=== PATIENT | female | born 1960 | race African-American/Black ===

== ENCOUNTER → 2016-07-04 | Outpatient (CLI) | payer BC ==
--- NOTE | 2016-07-04 16:06 | WOMENS IMAGING REPORT ---
EXAM DESCRIPTION: BILAT SCREENING MAMMO W/CAD COMPLETED DATE/TIME: 07/04/2016 1:35 pm REASON FOR STUDY: Z12.31, ROUTINE SCREENING MAMMO Z12.31 ENCNTR SCREEN MAMMOGRAM FOR MALIGNANT NEOP LASM OF DUSTIN COMPARISON: 03/23/2015 TECHNIQUE: Standard craniocaudal and mediolateral oblique views of each breast recorded using digita l acquisition. LIMITATIONS: None. FINDINGS: No masses, calcifications or architectural distortion. No areas of suspicion. Read with the assistance of CAD. .[facility] - R2 Cenova Version 1.3 .[facility] - R2 Cenova Version 1.3 .[facility] Imaging - R2 Cenova Version 2.4 .[facility] - R2 Cenova Version 2.4 .[facility] - R2 Drug Clerk Version 9.2 BREAST DENSITY: a. The breasts are almost entirely fatty. BIRAD: 1 NEGATIVE RECOMMENDATION: ROUTINE SCREENING COMMENT: PATIENT NOTIFIED BY LETTER. The [employer] recommends an annual screening mammogram for women aged 40 years or over. Each patient will receive a reminder prior to the anniversary date of her mammogram. The [employer] (ACR) has developed recommendations for screening MRI of the breast s in certain patient populations, to be used in conjunction with mammography. Breast MRI surveillanc e may be appropriate for women with more than 20% lifetime risk of developing breast cancer as deter mined by genetic testing, significant family history of the disease, or history of mantle radiation f or Hodgkins Disease. ACR Practice Guidelines 2008. TECHNICAL DOCUMENTATION: FINDING NUMBER: (1) ASSESSMENT: (1) JOB ID: [id number] [employer]- All Rights Reserved
== END ==
LOC: WI 13:10
PROVIDERS: ATTEND Internal Medicine
DX: Z12.31 Encounter for screening mammogram for malignant neoplasm of breast (principal)
CPT/HCPCS: 77067; G0202

== ENCOUNTER 2017-03-08 10:38 | Observation (INO) | payer BC ==
--- NOTE | 2017-03-08 11:22 | ER Document Report ---
ED Medical Screen (RME) - General Chief Complaint: Dizziness Stated Complaint: DIZZINESS Time Seen by Provider: 03/08/17 11:09 Mode of Arrival: Ambulatory Information source: Patient TRAVEL OUTSIDE OF THE [place] IN LAST 30 DAYS: No - HPI Patient complains to provider of: Right-sided weakness, dizziness Notes: 03/08/17 11:21 Patient is a 56-year-old female with a history of hypertension who presents to the emergency room today complaining of 3 day history of dizziness with right- sided weakness, states when she tries to walk she feels as though she is leaning to the right side and that her right side is heavy, she reports a posterior headache, on exam she also reports decreased sensation in the right upper and lower extremities - Related Data Allergies/Adverse Reactions: No Known Allergies Allergy (Verified 03/08/17 11:02) Past Medical History - Social History Chew tobacco use (# tins/day): No Frequency of alcohol use: None Drug Abuse: None - Past Medical History Cardiac Medical History: Reports: Hx Hypertension Denies: Hx Coronary Artery Disease, Hx Heart Attack Pulmonary Medical History: Denies: Hx Asthma, Hx Bronchitis, Hx COPD, Hx Pneumonia Neurological Medical History: Denies: Hx Cerebrovascular Accident, Hx Seizures Renal/ Medical History: Denies: Hx Peritoneal Dialysis GI Medical History: Reports: Hx Colonoscopy Musculoskeltal Medical History: Denies Hx Arthritis Past Surgical History: Reports: Hx Cholecystectomy, Hx Hysterectomy, Hx Tubal Ligation - Immunizations Immunizations up to date: Yes Hx Diphtheria, Pertussis, Tetanus Vaccination: Yes - 2011 Physical Exam - Vital signs Vitals: Temp Pulse Resp BP Pulse Ox 97.8 F 83 18 128/78 H 93 03/08/17 10:59 03/08/17 10:59 03/08/17 10:59 03/08/17 10:59 03/08/17 10:59 Course - Vital Signs Vital signs: Temp Pulse Resp BP Pulse Ox 97.8 F 83 18 128/78 H 93 03/08/17 10:59 03/08/17 10:59 03/08/17 10:59 03/08/17 10:59 03/08/17 10:59
[2017-03-08] MEDS ORDERED: MECLIZINE HCL 25 MG TABLET PO ONE (11:32)
[2017-03-08 12:28] LABS: ABSOLUTE BASOPHILS # (AUTO) 0.1 10^3/uL (0.0-0.2); ABSOLUTE EOSINOPHILS # (AUTO) 0.1 10^3/uL (0.0-0.6); ABSOLUTE LYMPHOCYTES (AUTO) 1.6 10^3/uL (0.5-4.7); ABSOLUTE MONOCYTES (AUTO) 0.4 10^3/uL (0.1-1.4); ABSOLUTE NEUT (AUTO) 1.8 10^3/uL (1.7-8.2); BASOPHILS % (AUTO) 1.8 % (0-2); HEMATOCRIT 40.3 % (36.0-47.0); HEMOGLOBIN 13.9 g/dL (12.0-15.5); HGB HCT DIFFERENCE 1.4; LYMPHOCYTES % (AUTO) 40.8 % (13-45); MEAN CORPUSCULAR HEMOGLOBIN 30.7 pg (27.0-33.4); MEAN CORPUSCULAR HGB CONC 34.4 g/dL (32.0-36.0); MEAN CORPUSCULAR VOLUME 89 fl (80-97); MONOCYTES % (AUTO) 9.7 % (3-13); PROTHROMBIN TIME 15.2 SEC (11.4-15.4); RED BLOOD COUNT 4.52 10^6/uL (3.72-5.28); RED CELL DISTRIBUTION WIDTH 13.8 % (11.5-14.0); SEGMENTED NEUTROPHILS % (AUTO) 45.7 % (42-78)
[2017-03-08 12:29] LABS: PARTIAL THROMBOPLASTIN TIME 28.8 SEC (23.5-35.8)
--- NOTE | 2017-03-08 12:34 | RADIOLOGY REPORT (SQ) ---
EXAM DESCRIPTION: CT HEAD WITHOUT COMPLETED DATE/TIME: 03/08/2017 12:18 pm REASON FOR STUDY: right sided weakness COMPARISON: None. TECHNIQUE: Axial images acquired through the brain without intravenous contrast. Images reviewed wi th bone, brain and subdural windows. Images stored on PACS. All CT scanners at this facility use dose modulation, iterative reconstruction, and/or weight based d osing when appropriate to reduce radiation dose to as low as reasonably achievable (ALARA). [facility]: Dose Right [facility]: CareDose [facility]: Dose Right [facility]: Teradose 4D [facility]: Smart Technologies RADIATION DOSE: Up-to-date CT equipment and radiation dose reduction techniques were employed. CTDIv ol: 64.6 mGy. DLP: 1163 mGy-cm. mGy. LIMITATIONS: None. FINDINGS: VENTRICLES: Normal size and contour. CEREBRUM: Prior multiple areas of decreased white matter attenuation in the bifrontal and right parie ghassan regions. Although findings could represent small vessel ischemic change, demyelinating disease c ould cause this appearance. Multiple brain metastatic lesions at the cortez-white junction with edema could cause this appearance. Consider MRI brain without with contrast for followup. No CT evidence of acute large territory ischemic change, acute intracranial hemorrhage, mass effect, or midline shif t. CEREBELLUM: No masses. No hemorrhage. No alteration of density. No evidence for acute infarction. EXTRAAXIAL SPACES: No fluid collections. No masses. ORBITS AND GLOBE: No intra- or extraconal masses. Normal contour of globe without masses. CALVARIUM: No fracture. PARANASAL SINUSES: No fluid or mucosal thickening. SOFT TISSUES: No mass or hematoma. OTHER: No other significant finding. IMPRESSION: Bifrontal and biparietal subcortical white matter low attenuation. Although this could be due to small vessel disease, demyelinating disease or edema related to tiny brain parenchymal meta static lesions is possible. TRAUMA MANAGER vasculitis is possible. Consider follow-up MRI brain without and wi th contrast at some point. No CT evidence of acute intracranial hemorrhage, mass effect, midline shift, or acute large territory ischemic change EVIDENCE OF ACUTE STROKE: NO. COMMENT: Quality ID # [id number]: Final reports with documentation of one or more dose reduction techniques (e.g., Automated exposure control, adjustment of the mA and/or kV according to patient size, use of iterative reconstruction technique) TECHNICAL DOCUMENTATION: JOB ID: [id number]- All Rights Reserved
--- NOTE | 2017-03-08 12:36 | RADIOLOGY REPORT (SQ) ---
EXAM DESCRIPTION: CHEST SINGLE VIEW COMPLETED DATE/TIME: 03/08/2017 12:26 pm REASON FOR STUDY: right sided weakness COMPARISON: AP chest 06/20/2014 CT chest 02/23/2014 AP chest 02/23/2014 EXAM PARAMETERS: NUMBER OF VIEWS: One view. TECHNIQUE: Single frontal radiographic view of the chest acquired. RADIATION DOSE: NA LIMITATIONS: None. FINDINGS: LUNGS AND PLEURA: No opacities, masses or pneumothorax. No pleural effusion. MEDIASTINUM AND HILAR STRUCTURES: Hilar and mediastinal adenopathy seen on CT chest 02/23/2014 has res olved. HEART AND VASCULAR STRUCTURES: Heart normal in size. Normal vasculature. BONES: No acute findings. HARDWARE: Clips right upper quadrant post cholecystectomy OTHER: No other significant finding. IMPRESSION: NO ACUTE RADIOGRAPHIC FINDING IN THE CHEST. TECHNICAL DOCUMENTATION: JOB ID: [id number]
--- NOTE | 2017-03-08 13:03 | EKG REPORT ---
SEVERITY:- ABNORMAL ECG - SINUS RHYTHM LEFT VENTRICULAR HYPERTROPHY : Confirmed by: Mert Oconnell 08-Mar-2017 13:02:45
[2017-03-08 14:11] LABS: ALANINE AMINOTRANSFERASE 47 U/L (9-52); ALBUMIN 4.1 g/dL (3.5-5.0); ALKALINE PHOSPHATASE 111 U/L (38-126); ANION GAP 8 (5-19); ASPARTATE AMINO TRANSFERASE 30 U/L (14-36); BILIRUBIN,DIRECT 0.3 mg/dL (0.0-0.4); BILIRUBIN,TOTAL 1.1 mg/dL (0.2-1.3); BLOOD UREA NITROGEN 24 mg/dL (7-20); CALCIUM 10.1 mg/dL (8.4-10.2); CARBON DIOXIDE 27 mmol/L (22-30); CHLORIDE 105 mmol/L (98-107); CREATINE KINASE 181 U/L (30-135); CREATININE RESULT 0.87 mg/dL (0.52-1.25); GLUCOSE 91 mg/dL (75-110); SODIUM 140.3 mmol/L (137-145); TOTAL PROTEIN 7.3 g/dL (6.3-8.2)
[2017-03-08 14:21] LABS: CREATINE KINASE MB 1.68 ng/mL (<4.55)
[2017-03-08 14:23] LABS: TROPONIN I < 0.012 ng/mL
--- NOTE | 2017-03-08 14:26 | ER Document Report ---
ED General - General Chief Complaint: Dizziness Stated Complaint: DIZZINESS Time Seen by Provider: 03/08/17 11:09 Mode of Arrival: Ambulatory Information source: Patient Notes: 56-year-old female presents with complaints of shortness of breath with ambulation heaviness in her back and bilateral arms of 2 day duration. Patient also notes that she has been dizzy and lightheaded. Patient denies any fevers or chills denies any chest pain Patient states he feels like there is 100 pounds sitting on her shoulders and back TRAVEL OUTSIDE OF THE [place] IN LAST 30 DAYS: No - HPI Onset: Last week Onset/Duration: Waxing and waning Quality of pain: Achy Severity: Mild Pain Level: 1 Associated symptoms: Body/muscle aches, Shortness of breath, Other Exacerbated by: Movement, Walking Relieved by: Denies Similar symptoms previously: No Recently seen / treated by doctor: No - Related Data Allergies/Adverse Reactions: No Known Allergies Allergy (Verified 03/08/17 11:02) Past Medical History - General Information source: Patient - Social History Smoking Status: Never Smoker Cigarette use (# per day): No Chew tobacco use (# tins/day): No Smoking Education Provided: No Frequency of alcohol use: None Drug Abuse: None Family History: Arthritis, CVA, Hypertension Patient has suicidal ideation: No Patient has homicidal ideation: No - Past Medical History Cardiac Medical History: Reports: Hx Hypertension Denies: Hx Coronary Artery Disease, Hx Heart Attack Pulmonary Medical History: Denies: Hx Asthma, Hx Bronchitis, Hx COPD, Hx Pneumonia Neurological Medical History: Denies: Hx Cerebrovascular Accident, Hx Seizures Renal/ Medical History: Denies: Hx Peritoneal Dialysis GI Medical History: Reports: Hx Colonoscopy Musculoskeltal Medical History: Denies Hx Arthritis Past Surgical History: Reports: Hx Cholecystectomy, Hx Hysterectomy, Hx Tubal Ligation - Immunizations Immunizations up to date: Yes Hx Diphtheria, Pertussis, Tetanus Vaccination: Yes - 2011 Review of Systems - Review of Systems Notes: REVIEW OF SYSTEMS: CONSTITUTIONAL : Denies fever, chills, or sweats. Denies recent illness. EENT: Denies eye, ear, throat, or mouth pain or symptoms. Denies nasal or sinus congestion or discharge. Denies throat, tongue, or mouth swelling or difficulty swallowing. CARDIOVASCULAR: Admits to heaviness of her back and shoulders RESPIRATORY: Admits shortness of breath GASTROINTESTINAL: Denies abdominal pain or distention. Denies nausea, vomiting , or diarrhea. Denies blood in vomitus, stools, or per rectum. Denies black, tarry stools. Denies constipation. GENITOURINARY: Denies difficulty urinating, painful urination, burning, frequency, blood in urine, or discharge. FEMALE GENITOURINARY: Denies vaginal bleeding, heavy or abnormal periods, irregular periods. Denies vaginal discharge or odor. MUSCULOSKELETAL: Denies back or neck pain or stiffness. Denies joint pain or swelling. SKIN: Denies rash, lesions or sores. HEMATOLOGIC : Denies easy bruising or bleeding. LYMPHATIC: Denies swollen, enlarged glands. NEUROLOGICAL: Admits to dizziness PSYCHIATRIC: Denies anxiety or stress. Denies depression, suicidal ideation, or homicidal ideation. ALL OTHER SYSTEMS REVIEWED AND NEGATIVE. PHYSICAL EXAMINATION: GENERAL: Well-appearing, well-nourished and in no acute distress. HEAD: Atraumatic, normocephalic. EYES: Pupils equal round and reactive to light, extraocular movements intact, conjunctiva are normal. ENT: Nares patent, oropharynx clear without exudates. Moist mucous membranes. NECK: Normal range of motion, supple without lymphadenopathy LUNGS: Breath sounds clear to auscultation bilaterally and equal. No wheezes rales or rhonchi. HEART: Regular rate and rhythm without murmurs ABDOMEN: Soft, nontender, nondistended abdomen. No guarding, no rebound. No masses appreciated. Female : deferred Musculoskeletal: Normal range of motion, no pitting or edema. No cyanosis. NEUROLOGICAL: Cranial nerves grossly intact. Normal speech, normal gait. Normal sensory, motor exams PSYCH: Normal mood, normal affect. SKIN: Warm, Dry, normal turgor, no rashes or lesions noted. Dictation was performed using [employer] voice recognition software Physical Exam - Vital signs Vitals: Temp Pulse Resp BP Pulse Ox 97.8 F 83 18 128/78 H 93 03/08/17 10:59 03/08/17 10:59 03/08/17 10:59 03/08/17 10:59 03/08/17 10:59 Course - Re-evaluation Re-evalutation: 03/08/17 15:12 Patient appears to have 2 positive separate complaints, CT of the head was consistent with white matter disease however other differentials have been discussed as well with admitting physician, patient will be admitted for this heaviness and shortness of breath which may be anginal equivalents - Vital Signs Vital signs: Temp Pulse Resp BP Pulse Ox 97.8 F 80 15 132/76 H 97 03/08/17 10:59 03/08/17 12:15 03/08/17 14:00 03/08/17 12:15 03/08/17 14:00 - Laboratory Result Diagrams: 03/08/17 12:12 03/08/17 13:44 Laboratory results interpreted by me: 03/08/17 13:44 BUN 24 H Creatine Kinase 181 H - Diagnostic Test Radiology reviewed: Image reviewed, Reports reviewed - EKG Interpretation by Me EKG shows normal: Sinus rhythm, [place], Intervals, QRS Complexes Discharge - Discharge Clinical Impression: Dizziness, Vertigo, Arm heaviness Condition: Stable Disposition: ADMITTED OBSERVATION Admitting Provider: Hospitalist Unit Admitted: Telemetry
[2017-03-08] MEDS ORDERED: ONDANSETRON 4 MG TAB.RAPDIS PO PRN (15:24)
[2017-03-08] MEDS ORDERED: TEMAZEPAM 15 MG CAPSULE PO PRN (15:24)
[2017-03-08] MEDS ORDERED: ONDANSETRON HCL INJ/PF 4 MG/2 ML SDV IV PRN (15:24)
[2017-03-08] MEDS ORDERED: 1/2 NORMAL SALINE 1,000 ML IV PRN (15:40)
[2017-03-08] MEDS ORDERED: ASPIRIN 81 MG TABLET, CHEWABLE PO ONE (15:41)
[2017-03-08] MEDS ORDERED: HYDRALAZINE HCL INJ/PF 20 MG/1 ML SDV IV PRN (15:42)
[2017-03-08] MEDS ORDERED: TRAMADOL HCL 50 MG TABLET PO PRN (15:43)
[2017-03-08] MEDS ORDERED: ACETAMINOPHEN 325 MG TABLET PO PRN (15:43)
[2017-03-08] MEDS ORDERED: MECLIZINE HCL 25 MG TABLET PO PRN (15:44)
[2017-03-08] MEDS ORDERED: DEXTROSE 50%-WATER 25 GM/50 ML DISP.SYRIN IV PRN ×2 (16:14)
[2017-03-08] MEDS ORDERED: DEXTROSE 40% GEL 15 GM TUBE PO PRN ×2 (16:14)
[2017-03-08] MEDS ORDERED: GLUCAGON,HUMAN RECOMB 1 MG INJ IM PRN (16:14)
--- NOTE | 2017-03-08 16:14 | PDOC H&P ---
History of Present Illness Admission Date/PCP: 03/08/17 14:43 MARYAN ARAUZAUSTEN Patient complains of: Headache with lightheadedness and dizziness. History of Present Illness: MILLY BARAJAS is a 56 year old female whose chronic medical problems include hypertension and history of anemia due to menorrhagia. The patient was in her usual state of health until Thursday. The patient states that she was fine on Thursday. When she woke up on Thursday she felt bad. She felt lightheaded and dizzy like she was going to fall down. This was associated with a headache located over the right eye. She also started to develop shortness of breath with these symptoms. On Thursday morning she got ready for work. She was able to drive herself to work. When she went to work her coworkers noted that she did not look well. They recommended that she go home but she was able to work for the rest of this week. She has been checking her blood pressure repeatedly during this week and she states that her blood pressure is fine. She has a strong family history of diabetes but does not relate a history of diabetes herself. She was not able to check her blood sugars this week. The patient's headache has been described as throbbing. It is worse when she bends over or leans down. Her symptoms are also associated with intermittent heaviness in her shoulders. Her symptoms are worse in the right shoulder than the left shoulder. She also has pain in the right side of her neck. She has pain across her neck just superior to the shoulder blades. She has not had any recent changes to her medications. She uses Motrin for symptomatic relief. She came into the emergency department today at the urging of her brother. The patient works in a school cafeteria but does not have any significant contacts with children and does not feel that she has had any ill contacts. Review of systems is significant for the symptoms above. She denies cough. She denies sinus pressure. She denies fever. She denies chills. She has hot flashes but they have not changed in character, frequency or severity. She states that she is eating fine. She does not have any abdominal pain. She notes no nausea, vomiting, diarrhea or constipation. She has no skin lesions or rashes. She has no pain or burning with urination. Her urination has been the same as usual. Past Medical History Cardiac Medical History: Reports: Hypertension Denies: Coronary Artery Disease, Myocardial Infarction Pulmonary Medical History: Denies: Asthma, Bronchitis, Chronic Obstructive Pulmonary Disease (COPD), Pneumonia Neurological Medical History: Denies: Seizures Musculoskeltal Medical History: Denies: Arthritis Hematology: Reports: Anemia - before hysterectomy Past Surgical History Past Surgical History: Reports: Cholecystectomy, Hysterectomy, Tubal Ligation Social History Smoking Status: Never Smoker Frequency of Alcohol Use: None Hx Recreational Drug Use: No Hx Prescription Drug Abuse: No - Advance Directive Resuscitation Status: Full Code Family History Family History: Arthritis, CVA, Hypertension Parental Family History Reviewed: Yes - Father had diabetes complicated by amputation. Children Family History Reviewed: Yes Sibling(s) Family History Reviewed.: Yes Medication/Allergy Home Medications: Amlodipine Besylate [Norvasc 10 mg Tablet] 10 mg PO DAILY 03/08/17 Aspirin [Ecotrin 81 mg EC Tablet] 81 mg PO DAILY 03/08/17 Losartan/Hydrochlorothiazide [Losartan-Hctz 100-25 mg Tab] 1 each PO DAILY 03/08 Allergies/Adverse Reactions: No Known Allergies Allergy (Verified 03/08/17 11:02) Review of Systems Constitutional: PRESENT: as per HPI Eyes: ABSENT: visual disturbances Ears: ABSENT: hearing changes Nose, Mouth, and Throat: PRESENT: other - She has chronic dental caries Cardiovascular: PRESENT: as per HPI Respiratory: PRESENT: as per HPI Gastrointestinal: PRESENT: as per HPI Genitourinary: PRESENT: as per HPI Musculoskeletal: ABSENT: joint swelling Integumentary: ABSENT: rash, wounds Neurological: PRESENT: paresthesias - She has paresthesias in the right lower extremity Psychiatric: ABSENT: anxiety, depression, homidical ideation, suicidal ideation Endocrine: ABSENT: cold intolerance, heat intolerance, polydipsia, polyuria Hematologic/Lymphatic: ABSENT: easy bleeding, easy bruising Physical Exam Vital Signs: Temp Pulse Resp BP Pulse Ox 97.8 F 76 16 136/76 H 97 03/08/17 10:59 03/08/17 15:49 03/08/17 15:49 03/08/17 15:49 03/08/17 15:49 Additional comments: The patient is a middle-aged black female. She is obese. She does not appear to be in any distress, although, she was tearful at times when describing her headache and the severity of her headache. She does not appear to be toxic. Her facial appearance is normal. Cranial nerves II through XII are intact. Her oral pharynx demonstrates moist mucous membranes. Lips are normal. Dentition is poor. She has multiple dental caries and she appears to have teeth that need to be removed particularly upper. The neck is supple. She does not have any palpable cervical or posterior auricular adenopathy. Trachea is midline. Thyroid is not palpable. She does not have any JVD. External ear exam is normal bilaterally. Tympanic membranes are shiny bilaterally. Pupils are equally round and reactive to light. The patient's lungs are clear to auscultation bilaterally both anteriorly and posteriorly. Cardiac exam demonstrates a regular rate and rhythm without murmurs, gallops or rubs. Breast exam was deferred. Abdomen is soft and flat. Bowel sounds are present. There is no guarding or rebound noted and there are no hernias or masses noted. The patient does not have hepatomegaly or splenomegaly. Patient's lower extremities are warm to touch. She does not have any edema present. She does not have any acute skin lesions or rashes. The skin is warm dry and intact. The patient's strength is 5/5 throughout. Sensation demonstrates mild irregularity in the right lower extremity but is otherwise normal. Deep tendon reflexes are normal. Patient's gait and station is normal. Ambulation is normal. Cerebellar exam is normal with normal finger to nose and heel to hobbs exam. Results Impressions: Chest X-Ray 03/08/17 11:20 IMPRESSION: NO ACUTE RADIOGRAPHIC FINDING IN THE CHEST. Head CT 03/08/17 11:20 IMPRESSION: Bifrontal and biparietal subcortical white matter low attenuation. Although this could be due to small vessel disease, demyelinating disease or edema related to tiny brain parenchymal metastatic lesions is possible. BILINGUAL SALES ASSISTANT vasculitis is possible. Consider follow-up MRI brain without and with contrast at some point. No CT evidence of acute intracranial hemorrhage, mass effect, midline shift, or acute large territory ischemic change EVIDENCE OF ACUTE STROKE: NO. Assessment & Plan - Diagnosis (1) Headache Is this a current diagnosis for this admission?: Yes (2) Hypertension Is this a current diagnosis for this admission?: Yes (3) Abnormal head CT Is this a current diagnosis for this admission?: Yes (4) Arm heaviness Is this a current diagnosis for this admission?: Yes (5) Dizziness Is this a current diagnosis for this admission?: Yes - Time Time Spent: 50 to 70 Minutes - Plan Summary Plan Summary: At this point time the patient presents with symptoms of headache, dizziness and heaviness of her shoulders associated with neck pain. The differential diagnosis includes atypical migraine, transient ischemic attack (less likely. The patient could also have an inner ear infection with acute labyrinthitis. I also feel that this is unlikely. Due to the fact that the patient has an abnormal head CT she will be admitted to observation. A stat MRI has been ordered. If this is normal I will proceed with Dopplers and consider echocardiogram testing. If the MRI is abnormal and there are changes concerning for vasculitis or metastatic disease to the central nervous system the patient will require additional workup and possibly lumbar puncture. She may require transfer to an alternate facility. Based on her clinical exam and physical exam I think that this is unlikely. The patient will be admitted also for pain control. If Tylenol is ineffective we will use Ultram. She is very symptomatic to narcotics with significant nausea and vomiting so I will try to avoid oxycodone or hydrocodone. Her creatinine kinase is mildly elevated. This could be her baseline but she will be started on IV fluids. She will also be started on aspirin and atorvastatin as part of her stroke workup. I will allow for mild hypertension and therefore I will hold her oral antihypertensives and place her on as needed hydralazine. We will also check her fingersticks to make sure she does not have hypo-or hyperglycemia.
--- NOTE | 2017-03-08 17:10 | RADIOLOGY REPORT (SQ) ---
EXAM DESCRIPTION: MRI HEAD COMBO COMPLETED DATE/TIME: 03/08/2017 4:34 pm REASON FOR STUDY: Anbormal head CT COMPARISON: Earlier CT same date TECHNIQUE: Multiplanar imaging includes noncontrasted T1, T2, FLAIR, Diffusion with ADC map and post gadolinium contrast T1 sequences. Images stored on PACS. CONTRAST TYPE AND DOSE: 18 mL Multihance. RENAL FUNCTION: GFR > 60. LIMITATIONS: None. FINDINGS: ANATOMY: No anomalies. Normal vascular flow voids. Pituitary fossa partially empty. CSF SPACES: Age-appropriate. CEREBRUM: High-signal intensity lesions scattered throughout the white matter on FLAIR imaging. No e vidence of hemorrhage, extraaxial fluid collection or acute ischemic change. No enhancing lesions. POSTERIOR FOSSA: No signal alteration. No hemorrhage. No edema, masses, or mass effect. Internal jeannine tory canals, cerebello-pontine angles, mastoids normal. No enhancing lesions. ORBITS: No masses. Globes normal. PARANASAL SINUSES: No fluid levels. Mucosa normal. DIFFUSION: Normal. No evidence of recent infarct. OTHER: No other significant finding. IMPRESSION: High-signal intensity lesions scattered throughout the white matter on FLAIR imaging. No enhancing lesions. Differential diagnostic considerations include small vessel ischemic changes and demyelinating disorder. EVIDENCE OF ACUTE STROKE: NO. TECHNICAL DOCUMENTATION: JOB ID: [id number] [employer]- All Rights Reserved
[2017-03-08] MEDS ORDERED: ATORVASTATIN CALCIUM 40 MG TABLET PO SCH (22:00)
[2017-03-09] MEDS ORDERED: ASPIRIN 325 MG TABLET, ENT COATED PO SCH (10:00)
--- NOTE | 2017-03-09 12:43 | PDOC DISCHARGE SUMMARY ---
General - Admit/Disc Date/PCP Admission Date/Primary Care Provider: 03/08/17 15:24 MARYAN DE OLIVEIRA Discharge Date: 03/09/17 - Discharge Diagnosis (1) Headache Is this a current diagnosis for this admission?: Yes (2) Hypertension Is this a current diagnosis for this admission?: Yes (3) Abnormal head CT Is this a current diagnosis for this admission?: Yes (4) Arm heaviness Is this a current diagnosis for this admission?: Yes (5) Dizziness Is this a current diagnosis for this admission?: Yes - Additional Information Resuscitation Status: Full Code Discharge Diet: Cardiac Discharge Activity: Slowly Increase Activity Home Medications: Aspirin [Ecotrin 81 mg EC Tablet] 81 mg PO DAILY 03/08/17 Atorvastatin Calcium [Lipitor 40 mg Tablet] 40 mg PO QHS 30 Days #30 tablet 07/25 History of Present Illness History of Present Illness: MILLY BARAJAS is a 56 year old female whose chronic medical problems include hypertension and history of anemia due to menorrhagia. The patient was in her usual state of health until Thursday. The patient states that she was fine on Thursday. When she woke up on Thursday she felt bad. She felt lightheaded and dizzy like she was going to fall down. This was associated with a headache located over the right eye. She also started to develop shortness of breath with these symptoms. On Thursday morning she got ready for work. She was able to drive herself to work. When she went to work her coworkers noted that she did not look well. They recommended that she go home but she was able to work for the rest of this week. She has been checking her blood pressure repeatedly during this week and she states that her blood pressure is fine. She has a strong family history of diabetes but does not relate a history of diabetes herself. She was not able to check her blood sugars this week. The patient's headache has been described as throbbing. It is worse when she bends over or leans down. Her symptoms are also associated with intermittent heaviness in her shoulders. Her symptoms are worse in the right shoulder than the left shoulder. She also has pain in the right side of her neck. She has pain across her neck just superior to the shoulder blades. She has not had any recent changes to her medications. She uses Motrin for symptomatic relief. She came into the emergency department today at the urging of her brother. The patient works in a school cafeteria but does not have any significant contacts with children and does not feel that she has had any ill contacts. Review of systems is significant for the symptoms above. She denies cough. She denies sinus pressure. She denies fever. She denies chills. She has hot flashes but they have not changed in character, frequency or severity. She states that she is eating fine. She does not have any abdominal pain. She notes no nausea, vomiting, diarrhea or constipation. She has no skin lesions or rashes. She has no pain or burning with urination. Her urination has been the same as usual. Hospital Course Hospital Course: The patient was admitted to the hospital with the above constellation of symptoms. Her symptoms were unusual for stroke or TIA. However, she was started on aspirin and atorvastatin for possible transient ischemic attack. During the patient's hospitalization her blood pressure medications were held. On the morning of discharge her blood pressure is noted to be in the range of 98 /46-106 over the 60s. Therefore, it is possible that the patient's symptoms are secondary to low blood pressure. Her blood pressure medications are going to be discontinued at discharge. In addition, she has not been eating and drinking due to not feeling well. I will have the patient follow-up with her primary care doctor in 1 week to reevaluate her blood pressure. I will also asked the patient to monitor her blood pressure and resume the Norvasc should her systolic blood pressure be greater than 140 or her diastolic blood pressure be greater than 90. During this hospitalization the patient was noted to have an abnormal head CT with concerning findings of ischemic white matter changes versus demyelinating changes. Therefore, an MRI was performed. This again demonstrated ischemic white matter changes versus a demyelinating process. For that reason a neurology consult was obtained. The patient was seen by neurology today and they report that the changes seen on the MRI scan are consistent with ischemic white matter changes and not the myelinating changes. Patient will be maintained on aspirin and Lipitor at discharge. Physical Exam Vital Signs: Temp Pulse Resp BP Pulse Ox 98.1 F 74 18 109/69 99 03/09/17 07:29 03/09/17 08:00 03/09/17 08:00 03/09/17 08:00 03/09/17 08:00 Intake & Output 03/08/17 03/09/17 03/10/17 06:59 06:59 06:59 Intake Total 1240 Output Total 0 Balance 1240 Weight 95 kg Additional comments: Patient is doing well. She states that her headache is resolved. She is only mildly lightheaded. Her cognition and mentation are normal. Neurologically, she moves all 4 extremities and is able to follow commands. She is able to ambulate within the room. Her facial appearance is normal. Again, she has many dental caries noted. Her lungs demonstrate a few scattered rhonchi only in the posterior lung morales, but, she was laying down prior to my exam. Her cardiac exam is regular without murmurs, gallops or rubs. The abdomen is soft and flat. Bowel sounds are present. She does not have any guarding or rebound. There are no hernias or masses. The lower extremities are warm to touch without edema. The skin is warm dry and intact without lesions or rashes. Results Laboratory Results: 03/09/17 03:56 Creatine Kinase 108 Impressions: Head MRI 03/08/17 00:00 IMPRESSION: High-signal intensity lesions scattered throughout the white matter on FLAIR imaging. No enhancing lesions. Differential diagnostic considerations include small vessel ischemic changes and demyelinating disorder. EVIDENCE OF ACUTE STROKE: NO. Chest X-Ray 03/08/17 11:20 IMPRESSION: NO ACUTE RADIOGRAPHIC FINDING IN THE CHEST. Head CT 03/08/17 11:20 IMPRESSION: Bifrontal and biparietal subcortical white matter low attenuation. Although this could be due to small vessel disease, demyelinating disease or edema related to tiny brain parenchymal metastatic lesions is possible. 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 Consider follow-up MRI brain without and with contrast at some point. No CT evidence of acute intracranial hemorrhage, mass effect, midline shift, or acute large territory ischemic change EVIDENCE OF ACUTE STROKE: NO. Qualifiers PATEINT BEING DISCHARGED WITH ANY OF THE FOLLOWING DIAGNOSIS?: No Plan Discharge Plan: The patient will need to follow-up with her primary respite care provider in 1 week. She will be instructed to resume Norvasc should her systolic blood pressure be greater than 140 or her diastolic blood pressure be greater than 90. She will not resume both antihypertensives. She will continue aspirin 81 mg at discharge. I have also prescribed atorvastatin 40 mg at bedtime. Time Spent: Less than 30 Minutes
[2017-03-09 13:43] VITALS: BP 150/84
== END 2017-03-09 14:45 | disposition home or self-care (01) ==
LOC: ER 10:38 → EH 14:43 → UNDOADMOB 14:43 → EH 15:24 → 3W 16:50
PROVIDERS: ADMIT Family Medicine; ATTEND Family Medicine
DX: R51 Headache (principal); I10 Essential (primary) hypertension; R93.0 Abnormal findings on diagnostic imaging of skull and head, not elsewhere classified; R44.8 Other symptoms and signs involving general sensations and perceptions; R42 Dizziness and giddiness; M54.2 Cervicalgia; R06.02 Shortness of breath; K02.9 Dental caries, unspecified; R23.2 Flushing; R20.2 Paresthesia of skin; Z79.899 Other long term (current) drug therapy; Z79.82 Long term (current) use of aspirin; Z83.3 Family history of diabetes mellitus; Z90.710 Acquired absence of both cervix and uterus; Z90.49 Acquired absence of other specified parts of digestive tract; Z98.51 Tubal ligation status; Z82.3 Family history of stroke; Z82.49 Family history of ischemic heart disease and other diseases of the circulatory system; Z82.61 Family history of arthritis
CPT/HCPCS: 93005; 99285; 36415 ×2; 82553; 82962 ×2; 82550 ×2; 85025; 85610; 85730; 80053; 84484; 70553; 71010; 70450; 93010; G0378 ×3; A9577; J3490

== ENCOUNTER 2019-06-28 10:10 | Day surgery (SDC) | payer BC, OTHER ==
[~2019-06-28 10:10] MED LIST: BUPIVACAINE HCL 0.75% INJ/PF (7.5 MG/1 ML) 10 ML SDV OD PRN; CHONDR SU A NA/HYALUR INTRAOC KIT (SURGICARE) ONE; DORZOLAMIDE HCL 2%/TIMOLOL MALEAT 0.5% OPH SOLN 10 ML OD PRN; EPINEPHRINE INJ/PF 1 MG/1 ML AMPULE ONE; KETOROLAC TROMETHAMINE 0.45% 4 DROP/0.4 ML DROPERETTE OD PRN; LIDOCAINE 1% INJ-PF (10 MG/ML) 30 ML SDV ONE; LIDOCAINE 4% INJ/PF (40 MG/ML) 5 ML AMPUL OD PRN; TRYPAN BLUE 0.06 % OPH SOLN 0.5 ML DISP.SYRIN ONE
[2019-06-28] MEDS: CYCLOPENTOLATE 0.2%/PHENYLEPHRINE 1% OPH SOLN 2 ML OD PRN ×3 (11:00→11:25)
[2019-06-28] MEDS: TROPICAMIDE 1% OPH SOLN 15 ML OD PRN ×3 (11:00→11:25)
[2019-06-28] MEDS: BESIFLOXACIN HCL 0.6% OPH SUSP 5 ML BOTTLE OD PRN ×3 (11:00→12:26)
[2019-06-28] MEDS: TETRACAINE HCL 0.5% OPH SOLN 4 ML OD PRN ×3 (11:00→11:57)
[2019-06-28] MEDS ORDERED: MIDAZOLAM 2 MG/2 ML INJ ONE (11:28)
--- NOTE | 2019-06-28 12:45 | Operative Report ---
Operative Report-[facility] Operative Report: DATE OF SURGERY: 06/28/2019 PREOPERATIVE DIAGNOSIS: MATURE CATARACT,RIGHT EYE. POSTOPERATIVE DIAGNOSIS: MATURE CATARACT, RIGHT EYE. PROCEDURE PERFORMED: COMPLEX CATARACT EXTRACTION WITH INTRAOCULAR LENS, RIGHT EYE Intraocular Lens Model: SN 60 WF 14.0 Total Phaco Time: 16.05 CDE SURGEON: JIMENA ABRAHAM MD ANESTHESIA: TOPICAL WITH MAC PLUS LIDOCAINE INDICATIONS FOR SURGERY: Difficulty driving no depth perception and mature cataract PROCEDURE: The patient was brought to the operating room and placed on operative table. Following Tetracaine drops, topical anesthesia was administered. This consisted of instrument wipe pledgets soaked in a solution of 4% Xylocaine mixed with 0.75% of Marcaine in a 1:2 ratio. A 2 x 1 cm pledget was placed in the superior fornix. A 1 x 1 cm pledget was placed in inferior fornix. The eye was patched out for 5 minutes. The patch was removed. The eye was sterilely prepped and draped in the usual manner. Lid speculum was placed in the eye. The pledgets were removed. 4-0 black silk sutures were placed around the superior and inferior rectus muscle to be used as traction. A conjunctival peritomy was performed at the 10 o'clock position. Hemostasis was obtained with bipolar cautery. A posterior limbal groove was created using a crescent knife and dissected anteriorly towards the cornea. A sharp point blade was used to create a paracentesis site at the 2 o'clock position. Following the side-port incision, a syringe with air was injected into the eye, exchanging aqueous with air. Trypan blue dye was injected inferior to the air bubble. A 2.0 mm keratome was used to enter the anterior chamber through the groove. Viscoelastic was injected into the anterior chamber. An anterior capsulotomy was performed using Utrata forceps in the capsulorrhexis fashion. Hydrodissection and hydrodelineation were performed. Phacoemulsification was performed in the divide and conquer technique. Following this, the I/A unit was used to remove residual cortex. Viscoelastic was injected into the capsular bag. The intraocular lens was placed in the capsular bag. The I/A unit was used to remove residual viscoelastic. The wound was seen to be watertight under high and low pressure, and no sutures were placed. The intraocular lens was well centered. The pressure was adjusted in the eye to normal pressure. The 4-0 black silk sutures and lid speculum were removed. The eye was shielded after Besivance prednisolone and Cosopt drops were placed. The patient tolerated the procedure well and was sent to recovery room in good condition.
== END 2019-06-28 13:13 | disposition home or self-care (01) ==
LOC: SC 10:10
PROVIDERS: ATTEND Ophthalmology
DX: H25.89 Other age-related cataract (principal); I10 Essential (primary) hypertension; Z79.899 Other long term (current) drug therapy; Z87.891 Personal history of nicotine dependence; H25.812 Combined forms of age-related cataract, left eye; H53.2 Diplopia; Z86.73 Personal history of transient ischemic attack (TIA), and cerebral infarction without residual deficits
CPT/HCPCS: 66982; V2632; J2250; J3490 ×6; J0171; 142